=== PATIENT | male | born 1970 | race Caucasian/White ===

== ENCOUNTER 2016-07-26 05:47 | Emergency (ER) | payer SELFPAY ==
[~2016-07-26 05:47] MED LIST: ASPIRIN EC81 MG PO; COREG 3.125M3.125 MG PO; IMDUR ER TAB 3030 MG PO; LEVEMIR100 UNIT/1 SQ; LIPITOR TAB 2020 MG PO; NITROSTAT 0.40.4 MG SL; NOVOLOG 10100 UNITS/ SQ; PROTONIX40 MG PO
== END 2016-07-26 09:25 | disposition home or self-care (01) ==
LOC: ER1 05:47
DX: S61.412A Laceration without foreign body of left hand, initial encounter (principal); W26.0XXA Contact with knife, initial encounter; F17.220 Nicotine dependence, chewing tobacco, uncomplicated
CPT/HCPCS: 12001; 82962; 90471; 90715; 99283

== ENCOUNTER 2020-05-03 22:08 | Emergency (ER) | payer SELFPAY ==
[~2020-05-03 22:08] MED LIST changes: +CLEOCIN HCL300 MG PO
== END 2020-05-04 00:16 | disposition left against medical advice (07) ==
LOC: ER1 22:08
DX: Z53.21 Procedure and treatment not carried out due to patient leaving prior to being seen by health care provider (principal)
CPT/HCPCS: 93005

== ENCOUNTER 2021-09-06 13:37 | Emergency (ER) | payer SELFPAY ==
[2021-09-06] MEDS ORDERED: ZYRTEC10 MG PO (15:28)
[2021-09-06] MEDS ORDERED: AFRIN15 ML (15:28)
== END 2021-09-06 15:50 | disposition home or self-care (01) ==
LOC: ER1 13:37
DX: J32.8 Other chronic sinusitis (principal); E11.9 Type 2 diabetes mellitus without complications; F17.200 Nicotine dependence, unspecified, uncomplicated; Z20.822 Contact with and (suspected) exposure to COVID-19
CPT/HCPCS: 0240U; 99283